=== PATIENT | male | born 1965 | race Caucasian/White ===

== ENCOUNTER → 2016-05-16 | Outpatient (CLI) | payer SELFPAY ==
--- NOTE | 2016-05-16 16:16 | KCIC ---
PROCEDURE HISTORY Hyperlipidemia TECHNIQUE High resolution, computed tomography of the heart was performed with ECG gating and suspended respiration using the Siemens HeartView CT. No contrast material was administered. Post processing was performed on the 3-D computer workstation using diastolic phase images to measure the amount of coronary vascular calcium. Scoring was performed utilizing the Agaston Method. Exposure: One or more of the following dose reduction technique were utilized for this examination: 1. Automated exposure control. 2.Adjustment of MA and /or KV according to patient size. 3. Use of iterative reconstruction technique. FINDINGS Coronary arteries: CALCIUM IS PRESENT. TOTAL AGASTON CALCIUM SCORE 1218.5 Calcium is detected in the coronary circulation and confirms the presence of atherosclerotic plaque. The score is derived from left main 0, LAD 335.9, LCX 0, RCA 882.6 The presence of coronary calcium confirms the presence of atherosclerotic plaque. The greater the amount of coronary calcium, the greater the likelihood of stenotic or occlusive coronary artery disease. However, there is not a one-to-one relationship, and findings may not be site specific. The total amount of calcium correlates best with the total amount of atherosclerotic plaque, although the true plaque burden may be underestimated by calcium score. A high calcium score may be consistent with a MODERATE TO HIGH RISK risk of cardiovascular events within the 2-5 years. Partially visualized left lingular linear airspace opacity likely atelectasis or scarring changes. There is partially visualized probable diverticulum identified extending from the fundus of the stomach. IMPRESSION 1. Coronary atherosclerosis is present, extensive. 2. High risk of cardiovascular event within the next 2 to 5 years. 3. High probability of stenotic (potentially flow-limiting) or occlusive coronary artery disease RECOMMENDATIONS 1. Strongly consider further cardiac evaluation for pre-clinical coronary heart disease. 2. [place]ugh aggressive cardiovascular risk factor modification as indicated based on risk profile. Additional supporting information concerning the findings and recommendation contained within this report can be found in the consensus statements on coronary vascular calcium published by the [place] [employer] and [place] [employer] 5 Conference (Circulation 1996; 94: 4231-8932; J Am [employer] Cardiol 2000; 36: 326-340 and Circulation 2000; 101: 111-116). PQRS STATEMENT One or more of the following individualized dose reduction techniques were utilized for this study: 1.Automated exposure control 2.Adjustment of the mA and/or kV according to patient size 3.Use of iterative reconstruction technique Electronically signed by: Gm Decker (May 16, 2016 16:14:23)
== END | disposition home or self-care (01) ==
LOC: KCIC CT 15:31
DX: E78.5 Hyperlipidemia, unspecified (principal); I70.0 Atherosclerosis of aorta; I25.10 Atherosclerotic heart disease of native coronary artery without angina pectoris
CPT/HCPCS: 75571

== ENCOUNTER → 2018-10-15 | Day surgery (SDC) | payer OTHER ==
[~2018-10-15] MED LIST: ATOR20TA58 PO; HYDROmorphone 2 MG/ML VIAL IV PRN; IV RINGERS,LACTATED 1000ML 1,000 ML IV SCH; LEVO175T5 PO; LIDOCAINE 2% PF 5 ML VIAL. ONE; LISI-130 PO; MORPHINE SULFATE 2 MG/ML VIAL. IV PRN; ONDANSETRON PF 4 MG/2 ML VIAL. IV PRN; PROCHLORPERAZINE 10 MG/2 ML VIAL. IV PRN; PROPOFOL 20 ML IV ONE; PROPOFOL 40 ML IV ONE; fentaNYL PF VIAL 100 MCG/2 ML VIAL IV PRN
[2018-10-15 09:10] VITALS: BP 120/79
--- NOTE | 2018-10-18 18:11 | PATHOLOGY ---
[facility] Accession Number: [id number] . 01 Material submitted: . PART A: esophagus - DISTAL ESOPHAGUS. Modifiers: distal PART B: sigmoid colon - SIGMOID POLYP . 01 Clinical history: . Pre-OP DX: Dysphagia/screen Post-OP DX: Pending/rule out Iraheta's . 02 Diagnosis: A. Esophageal biopsies, distal esophagus: - Segments of hyperplastic squamous esophageal mucosa consistent with reflux esophagitis. . B. Colon biopsies, sigmoid polyp: - Hyperplastic polyp. . (JPM:mm; 10/18/2018) [facility]/10/18/2018 . 02 Comment: Sections of the distal esophageal biopsy reveal segments of focally tangentially-oriented hyperplastic squamous esophageal mucosa. There are focal intraepithelial neutrophils and a few intraepithelial eosinophils. The findings are consistent with reflux esophagitis. There is no evidence of Iraheta's change, dysplasia or malignancy. . Sections of the sigmoid colon biopsy reveal a hyperplastic polyp. There are no adenomatous changes or evidence of malignancy. . (JPM:mml; 10/18/2018) . 02 Electronically signed: . Amado Lara MD, Pathologist NPI- [id number] . 01 Gross description: . A. Received in formalin labeled "Ney Shields, distal esophagus," are 5 segments of ghosh soft tissue measuring 1.1 x 0.9 x 0.2 cm in aggregate dimensions and ranging from 0.3 to 0.4 cm in maximum dimension. The specimen is submitted entirely in cassette A1. . B. Received in formalin labeled "Ney Shields, sigmoid polyp," are 2 segments of ghosh soft tissue measuring 0.7 x 0.2 x 0 .2 cm in aggregate dimensions and ranging from 0.3 to 0.4 cm in maximum dimension. The specimen is submitted entirely in cassette B1. (TSD; 10/15/2018) TOB/TOB . 02 Pathologist provided ICD-10: K20.9, K63.5 . 02 CPT . 776494, [id number] Specimen Comment: A courtesy copy of this report has been sent to Specimen Comment: [phone], . Specimen Comment: Report sent to / DR MILLER Performed at: 01 [facility] [address] [place] [address] [address], [place] [id number] MD Mihir Vázquez MD Phone: [phone] Performed at: 02 [facility] [address] [place] [id number] MD Amado Lara MD Phone: [phone]
== END ==
LOC: SURG 07:16
PROVIDERS: ATTEND Internal Medicine Gastroenterology
DX: Z12.11 Encounter for screening for malignant neoplasm of colon (principal); K63.5 Polyp of colon; K21.0 Gastro-esophageal reflux disease with esophagitis; K22.2 Esophageal obstruction; K64.0 First degree hemorrhoids; I10 Essential (primary) hypertension; E78.00 Pure hypercholesterolemia, unspecified; F15.90 Other stimulant use, unspecified, uncomplicated; Z72.89 Other problems related to lifestyle; Z88.1 Allergy status to other antibiotic agents; Z98.890 Other specified postprocedural states
CPT/HCPCS: 43239; 43450; 45380; 88305; J2001; J2704